=== PATIENT | male | born 1955 ===

== ENCOUNTER 2022-01-30 08:23 | Outpatient (CLI) | payer OTHER ==
[2022-01-31] MEDS ORDERED: MIRALAX17 GM PO (16:48)
[2022-01-31] MEDS ORDERED: ULTRAM50 MG PO (16:48)
[2022-01-31] MEDS ORDERED: TYLENOL ARTHRI650 MG PO (16:48)
== END 2022-01-30 08:30 | disposition home or self-care (01) ==
LOC: LAB 08:23
PROVIDERS: ATTEND Surgery
DX: Z20.822 Contact with and (suspected) exposure to COVID-19 (principal)

== ENCOUNTER → 2022-01-31 | Day surgery (SDC) | payer OTHER ==
[~2022-01-31] VITALS: Ht 177.8 cm; Wt 81.6 kg
[~2022-01-31] MED LIST: MIRALAX17 GM PO; TYLENOL ARTHRI650 MG PO; ULTRAM50 MG PO
== END | disposition home or self-care (01) ==
LOC: ADM 01-23 08:15 → CIR.AMB 01-24 08:15
PROVIDERS: ATTEND Surgery
DX: K40.91 Unilateral inguinal hernia, without obstruction or gangrene, recurrent (principal); Z20.822 Contact with and (suspected) exposure to COVID-19; I10 Essential (primary) hypertension; J34.9 Unspecified disorder of nose and nasal sinuses; Z87.891 Personal history of nicotine dependence